=== PATIENT | male | born 1975 | race Caucasian/White ===

== ENCOUNTER → 2018-01-23 | Outpatient (CLI) | payer OTHER | LOC: LAB 08:35 | DX: R50.9 Fever, unspecified (principal); Z88.5 Allergy status to narcotic agent ==

== ENCOUNTER → 2018-03-16 | Outpatient (CLI) | payer OTHER ==
[2018-03-16 07:41] LABS: HEMOGLOBIN 16.1 g/dL (13.5-18.0); MEAN PLATELET VOLUME 9.4 fl (7.4-10.4); RED BLOOD COUNT 5.29 M/mm3 (4.20-5.60); RED CELL DISTRIBUTION WIDTH 13.2 % (11.5-14.5); WHITE BLOOD COUNT 7.7 K/mm3 (4.8-10.8)
[2018-03-16 08:18] LABS: ALBUMIN 4.2 g/dL (3.5-5.0); BUN/CREATININE RATIO 13.9 (6.0-26.0); CALCIUM 9.7 mg/dL (8.4-10.2); POTASSIUM 4.6 mmol/L (3.6-5.0); TOTAL BILIRUBIN 0.4 mg/dL (0.2-1.3); TOTAL PROTEIN 7.8 g/dL (6.3-8.2)
== END ==
LOC: LAB 07:14
PROVIDERS: Family Medicine
DX: Z00.00 Encounter for general adult medical examination without abnormal findings (principal); Z88.5 Allergy status to narcotic agent

== ENCOUNTER → 2020-06-24 | Outpatient (CLI) | payer OTHER | LOC: RAD 17:51 | DX: M25.561 Pain in right knee (principal) ==

== ENCOUNTER → 2020-06-29 | Outpatient (CLI) | payer OTHER | LOC: RAD 07:29 | DX: M17.11 Unilateral primary osteoarthritis, right knee (principal) ==

== ENCOUNTER → 2020-12-04 | Outpatient (CLI) | payer OTHER | LOC: RAD 15:41 | DX: M25.561 Pain in right knee (principal) ==

== ENCOUNTER → 2020-12-25 | Outpatient (CLI) | payer OTHER ==
[2020-12-25 09:48] LABS: ALBUMIN 4.2 g/dL (3.5-5.0); POTASSIUM 4.9 mmol/L (3.5-5.1)
[2020-12-25 09:49] LABS: CALCIUM 9.4 mg/dL (8.3-10.5)
[2020-12-25 09:50] LABS: TOTAL PROTEIN 8.1 g/dL (6.4-8.3)
[2020-12-25 09:52] LABS: TOTAL BILIRUBIN 0.4 mg/dL (0.2-1.2)
[2020-12-25 09:55] LABS: BASO # 0.1 (0.02-0.10); EOS # 0.3 (0.04-0.40); EOS % 3.1 % (0.0-4.0); HEMATOCRIT 49.1 % (42.0-52.0); HEMOGLOBIN 16.2 g/dL (13.5-18.0); LYMPH# 1.9 (1.50-4.00); MEAN CELL VOLUME 89 fl (78-100); MEAN CORPUSCULAR HEMOGLOBIN 30 pg (27-31); MEAN CORPUSCULAR HGB CONC 33 g/dL (33-37); MEAN PLATELET VOLUME 10.2 fl (7.4-10.4); MONO # 0.6 (0.20-0.80); NEU # 5.5 (1.40-6.50); PLATELET COUNT 327 K/mm3 (130-400); RED CELL DISTRIBUTION WIDTH 13.1 % (11.5-14.5); WHITE BLOOD COUNT 8.3 K/mm3 (4.8-10.8)
== END ==
LOC: LAB 07:40
PROVIDERS: Family Medicine
DX: Z00.00 Encounter for general adult medical examination without abnormal findings (principal); E78.5 Hyperlipidemia, unspecified; R73.9 Hyperglycemia, unspecified

== ENCOUNTER 2021-03-28 10:53 | Outpatient (RCR) | payer OTHER | END 2021-06-26 | disposition home or self-care (01) | LOC: PT | DX: S83.211A Bucket-handle tear of medial meniscus, current injury, right knee, initial encounter (principal); Z98.890 Other specified postprocedural states ==

== ENCOUNTER → 2021-06-24 | Outpatient (CLI) | payer OTHER ==
[2021-06-24 15:22] LABS: BASO # 0.05 (0.02-0.10); EOS # 0.34 (0.04-0.40); EOS % 3.3 % (0.0-4.0); HEMATOCRIT 46.7 % (42.0-52.0); HEMOGLOBIN 15.8 g/dL (13.5-18.0); LYMPH# 2.76 (1.50-4.00); MEAN CELL VOLUME 88 fl (78-100); MEAN CORPUSCULAR HEMOGLOBIN 30 pg (27-31); MEAN CORPUSCULAR HGB CONC 34 g/dL (33-37); MEAN PLATELET VOLUME 9.3 fl (7.4-10.4); MONO # 0.61 (0.20-0.80); NEU # 6.42 (1.40-6.50); PLATELET COUNT 280 K/mm3 (130-400); RED BLOOD COUNT 5.28 M/mm3 (4.20-5.60); RED CELL DISTRIBUTION WIDTH 12.5 % (11.5-14.5); WHITE BLOOD COUNT 10.2 K/mm3 (4.8-10.8)
[2021-06-24 15:34] LABS: CALCIUM 9.5 mg/dL (8.3-10.5)
[2021-06-24 15:36] LABS: TOTAL PROTEIN 8.3 g/dL (6.4-8.3)
[2021-06-24 15:37] LABS: TOTAL BILIRUBIN 0.4 mg/dL (0.2-1.2)
[2021-06-24 16:12] LABS: ALBUMIN 4.2 g/dL (3.5-5.0)
== END ==
LOC: LAB 15:15
PROVIDERS: Family Medicine
DX: Z00.00 Encounter for general adult medical examination without abnormal findings (principal); E78.5 Hyperlipidemia, unspecified

== ENCOUNTER → 2021-06-27 | Outpatient (CLI) | payer OTHER | LOC: LAB 11:40 | DX: Z00.00 Encounter for general adult medical examination without abnormal findings (principal); R73.9 Hyperglycemia, unspecified; E78.5 Hyperlipidemia, unspecified ==

== ENCOUNTER → 2021-08-29 | Outpatient (CLI) | payer OTHER | LOC: LAB 15:19 | DX: E11.9 Type 2 diabetes mellitus without complications (principal) ==

== ENCOUNTER 2021-11-10 09:48 | Emergency (ER) | payer OTHER ==
[2021-11-10] MEDS ORDERED: DULOXETINE30 MG PO (10:13)
[2021-11-10] MEDS ORDERED: SILDENAFIL CIT100 MG PO (10:14)
[2021-11-10] MEDS ORDERED: SIMVASTATIN5 M1 (10:14)
[2021-11-10] MEDS ORDERED: KETOROLAC10 MG PO (11:06)
[2021-11-10 11:30] VITALS: BP 144/98
== END 2021-11-10 11:30 | disposition home or self-care (01) ==
LOC: ED 09:48
DX: M79.641 Pain in right hand (principal); E78.5 Hyperlipidemia, unspecified; E11.9 Type 2 diabetes mellitus without complications; F32.A Depression, unspecified; E66.9 Obesity, unspecified; Z88.6 Allergy status to analgesic agent; Z79.899 Other long term (current) drug therapy; W20.8XXA Other cause of strike by thrown, projected or falling object, initial encounter

== ENCOUNTER → 2022-01-30 | Outpatient (CLI) | payer OTHER ==
[~2022-01-30] MED LIST: DULOXETINE30 MG PO; KETOROLAC10 MG PO; SILDENAFIL CIT100 MG PO; SIMVASTATIN5 M1
== END ==
LOC: LAB 14:51
DX: Z00.00 Encounter for general adult medical examination without abnormal findings (principal); F32.9 Major depressive disorder, single episode, unspecified; E78.5 Hyperlipidemia, unspecified; E66.9 Obesity, unspecified; E11.9 Type 2 diabetes mellitus without complications; Z72.0 Tobacco use; Z82.49 Family history of ischemic heart disease and other diseases of the circulatory system